=== PATIENT | female | born 1950 | race Native Hawaiian/Other Pacific Islander ===

== ENCOUNTER 2017-03-08 14:51 | Outpatient (CLI) | payer OTHER | END 2017-03-08 19:08 | disposition home or self-care (01) | LOC: RESP 14:51 | DX: R06.02 Shortness of breath (principal) ==

== ENCOUNTER 2019-02-20 11:15 | Day surgery (SDC) | payer OTHER ==
[~2019-02-20] VITALS: Ht 33 cm; Wt 0.5 kg
== END 2019-02-20 15:10 | disposition home or self-care (01) ==
LOC: OR 11:15
PROC: 0DB68ZZ Excision of Stomach, Via Natural or Artificial Opening Endoscopic (ICD-10-PCS; principal; 2019-02-20)
DX: K29.50 Unspecified chronic gastritis without bleeding (principal); K31.7 Polyp of stomach and duodenum; K25.9 Gastric ulcer, unspecified as acute or chronic, without hemorrhage or perforation; K21.0 Gastro-esophageal reflux disease with esophagitis; R10.13 Epigastric pain; R11.0 Nausea
CPT/HCPCS: J2001; J2250; J2405; J2704

== ENCOUNTER 2019-04-11 12:27 | Outpatient (CLI) | payer OTHER | END 2019-04-11 23:06 | disposition home or self-care (01) | LOC: NM 12:27 | DX: R11.0 Nausea (principal) | CPT/HCPCS: A9541 ==

== ENCOUNTER 2019-04-23 09:04 | Outpatient (CLI) | payer OTHER | END 2019-04-23 23:42 | disposition home or self-care (01) | LOC: US 09:04 | DX: R10.13 Epigastric pain (principal) ==

== ENCOUNTER 2019-05-09 12:32 | Outpatient (CLI) | payer OTHER | END 2019-05-09 23:59 | disposition home or self-care (01) | LOC: NM 12:32 | DX: R10.13 Epigastric pain (principal) | CPT/HCPCS: A9537 ==

== ENCOUNTER 2020-12-09 09:22 | Outpatient (CLI) | payer OTHER | END 2020-12-09 22:08 | disposition home or self-care (01) | LOC: INF 09:22 | PROVIDERS: ATTEND Internal Medicine | DX: Z23 Encounter for immunization (principal) | CPT/HCPCS: 96372 ==

== ENCOUNTER 2020-12-31 09:26 | Outpatient (CLI) | payer OTHER | END 2020-12-31 22:16 | disposition home or self-care (01) | LOC: INF 09:26 | PROVIDERS: ATTEND Internal Medicine | DX: Z23 Encounter for immunization (principal) | CPT/HCPCS: 96372 ==

== ENCOUNTER 2021-03-22 13:19 | Outpatient (CLI) | payer OTHER | END 2021-03-22 23:59 | disposition home or self-care (01) | LOC: MRI 13:19 | PROVIDERS: ATTEND Internal Medicine | DX: Z84.89 Family history of other specified conditions (principal); H53.8 Other visual disturbances; E11.9 Type 2 diabetes mellitus without complications; R51.9 Headache, unspecified; I67.1 Cerebral aneurysm, nonruptured ==

== ENCOUNTER 2022-01-13 14:50 | Outpatient (CLI) | payer OTHER | END 2022-01-13 19:13 | disposition home or self-care (01) | LOC: MRI 14:50 | PROVIDERS: ATTEND Internal Medicine | DX: I72.9 Aneurysm of unspecified site (principal); Z84.89 Family history of other specified conditions; R51.9 Headache, unspecified ==

== ENCOUNTER 2022-01-17 10:05 | Outpatient (CLI) | payer OTHER | END 2022-01-17 20:47 | disposition home or self-care (01) | LOC: MRI 10:05 | PROVIDERS: ATTEND Internal Medicine | DX: I67.1 Cerebral aneurysm, nonruptured (principal); Z82.49 Family history of ischemic heart disease and other diseases of the circulatory system; R51.9 Headache, unspecified ==